=== PATIENT | female | born 1945 | race Native Hawaiian/Other Pacific Islander ===

== ENCOUNTER 2016-03-08 07:29 | Outpatient (CLI) | payer OTHER ==
[~2016-03-08 07:29] MED LIST: AMIO200T14 PO; ASPIRIN325 M1 OR; CENTRUM SILVER OR; FISH OIL1 C10 PO
== END 2016-03-08 19:07 | disposition home or self-care (01) ==
LOC: NM 07:29
DX: I25.89 Other forms of chronic ischemic heart disease (principal); E78.00 Pure hypercholesterolemia, unspecified; N95.8 Other specified menopausal and perimenopausal disorders; R09.89 Other specified symptoms and signs involving the circulatory and respiratory systems; R06.02 Shortness of breath
CPT/HCPCS: A9500

== ENCOUNTER 2016-11-28 09:32 | Outpatient (CLI) | payer OTHER | END 2016-11-28 11:00 | disposition home or self-care (01) | LOC: US 09:32 | DX: I65.29 Occlusion and stenosis of unspecified carotid artery (principal) ==

== ENCOUNTER 2018-10-27 04:15 | Emergency (ER) | payer OTHER ==
[~2018-10-27] VITALS: Ht 162.6 cm; Wt 54.4 kg
[2018-10-27 04:20] VITALS: TEMP 98
[2018-10-27 07:12] VITALS: BP 135/64
== END 2018-10-27 07:12 | disposition home or self-care (01) ==
LOC: ED 04:15
DX: S60.464A Insect bite (nonvenomous) of right ring finger, initial encounter (principal); W57.XXXA Bitten or stung by nonvenomous insect and other nonvenomous arthropods, initial encounter; Y92.89 Other specified places as the place of occurrence of the external cause
CPT/HCPCS: 99283; Q0177

== ENCOUNTER 2019-10-23 08:26 | Outpatient (CLI) | payer OTHER | END 2019-10-23 21:58 | disposition home or self-care (01) | LOC: CT 08:26 | DX: I65.29 Occlusion and stenosis of unspecified carotid artery (principal) | CPT/HCPCS: 36415; 82565; 84520; Q9963 ==

== ENCOUNTER → 2021-02-08 | Outpatient (CLI) | payer OTHER | LOC: US 08:54 | PROVIDERS: ATTEND Internal Medicine Cardiovascular Disease | DX: I65.29 Occlusion and stenosis of unspecified carotid artery (principal) ==

== ENCOUNTER 2021-03-18 08:02 | Outpatient (CLI) | payer OTHER | END 2021-03-18 18:52 | disposition home or self-care (01) | LOC: CT 08:02 | PROVIDERS: ATTEND Internal Medicine Cardiovascular Disease | DX: R93.89 Abnormal findings on diagnostic imaging of other specified body structures (principal) | CPT/HCPCS: 36415; 82565; 84520; Q9963 ==

== ENCOUNTER 2022-07-08 10:40 | Outpatient (CLI) | payer OTHER ==
[2022-07-08 11:02] LABS: PLATELET COUNT 130 K/uL (152-353)
[2022-07-08 11:12] LABS: POTASSIUM 3.7 mmol/L (3.6-5.2)
== END 2022-07-08 19:15 | disposition home or self-care (01) ==
LOC: LABW 10:40
PROVIDERS: ATTEND Surgery
DX: Z01.810 Encounter for preprocedural cardiovascular examination (principal); Z01.812 Encounter for preprocedural laboratory examination; I65.23 Occlusion and stenosis of bilateral carotid arteries; R79.82 Elevated C-reactive protein (CRP)
CPT/HCPCS: 36415; 80048; 85027; 86140; 93005

== ENCOUNTER 2022-08-31 17:38 | Outpatient (CLI) | payer OTHER ==
[2022-08-31 18:04] LABS: PLATELET COUNT 149 K/uL (152-353)
[2022-08-31 18:05] LABS: POTASSIUM 4.1 mmol/L (3.6-5.2)
== END 2022-08-31 19:05 | disposition home or self-care (01) ==
LOC: LABW 17:38
PROVIDERS: ATTEND Surgery
DX: Z01.812 Encounter for preprocedural laboratory examination (principal); I65.23 Occlusion and stenosis of bilateral carotid arteries
CPT/HCPCS: 36415; 80048; 85027